=== PATIENT | female | born 1975 | race Hispanic/Latino ===

== ENCOUNTER 2021-02-08 00:25 | Emergency (ER) | payer OTHER ==
[~2021-02-08] VITALS: Ht 167.6 cm; Wt 84.8 kg
[2021-02-08 00:29] VITALS: BP 134/81
[2021-02-08] MEDS ORDERED: ACETAMINOPHEN 500 MG TABLET PO ONE (02:00)
[2021-02-08] MEDS ORDERED: 0.9%NACL 1000ML 1,000 ML IV ONE (02:00)
[2021-02-08] MEDS ORDERED: FAMOTIDINE 20MG VIAL IV ONE (02:00)
[2021-02-08 03:24] LABS: BASOPHILS % (AUTO) 0.8 % (0.0-5.0); EOSINOPHILS % (AUTO) 0.6 % (0.0-8.0); HEMATOCRIT 36.9 % (36-48); LYMPHOCYTES % (AUTO) 6.5 % (21.0-51.0); MEAN CORPUSCULAR HEMOGLOBIN 22.4 pg (27.0-33.0); MEAN CORPUSCULAR HGB CONC 30.4 g/dL (32.0-36.0); MEAN CORPUSCULAR VOLUME 73.7 fL (79-99); MONOCYTES % (AUTO) 6.1 % (3.0-13.0); NEUTROPHILS % (AUTO) 85.6 % (40.0-77.0); PLATELET COUNT (AUTO) 515 K/uL (130-400); RED BLOOD CELL COUNT(AUTO) 5.01 MIL/uL (4.00-5.50); WHITE BLOOD COUNT (AUTO) 8.3 K/uL (4.8-10.8)
[2021-02-08 03:39] LABS: CREATININE 0.7 mg/dL (0.5-1.5); POTASSIUM 4.3 mmol/L (3.5-5.1)
[2021-02-08 03:43] LABS: ALBUMIN 3.7 g/dL (3.5-5.0); BILIRUBIN,TOTAL 0.2 mg/dL (0.2-1.0)
[2021-02-08 03:52] VITALS: BP 126/72
[2021-02-08] MEDS ORDERED: METO-296 PO (04:34)
[2021-02-08] MEDS ORDERED: ONDA4TAB10 PO (04:34)
[2021-02-08] MEDS ORDERED: DICY20TA2 PO (04:34)
[2021-02-08] MEDS ORDERED: CYCL10TA7 PO (04:34)
[2021-02-08 05:16] VITALS: BP 120/85
== END 2021-02-08 05:16 | disposition home or self-care (01) ==
LOC: EDH 00:25
DX: E86.0 Dehydration (principal); B34.9 Viral infection, unspecified; Z20.822 Contact with and (suspected) exposure to COVID-19; E11.9 Type 2 diabetes mellitus without complications; E78.00 Pure hypercholesterolemia, unspecified; I10 Essential (primary) hypertension; Z79.899 Other long term (current) drug therapy; Z87.442 Personal history of urinary calculi
CPT/HCPCS: 36415; 80053; 85025; 87635; 87804 ×2; 99283; C9803; J3490; J7030